=== PATIENT | female | born 1975 | race African-American/Black ===

== ENCOUNTER → 2016-12-22 | Outpatient (CLI) | payer OTHER ==
--- NOTE | 2016-12-22 17:00 | REPMRS ---
Patient History The patient states she has not had a clinical breast exam in over a year. Family history of prostate cancer in maternal uncle at age 65. Taking hormonal contraceptives for 15 years. Patient states she had a left breast bx in 2002 that was negative Patients prior exams over 10 years ago and destroyed. Digital Mammo Screening Bilat: December 22, 2016 - Exam #: [id number] Bilateral CC and MLO view(s) were taken. Technologist: Nell Suarez, Technologist FINDINGS: The breast tissue is heterogeneously dense. This may lower the sensitivity of mammography. There is no evidence of cancer on this mammogram. ASSESSMENT: BI-RADS/ACR category 2 mammogram. Benign finding(s). Recommendation Routine screening mammogram of both breasts in 1 year (for women over age 40). This mammogram was interpreted with the aid of an FDA-approved computer-aided dectection system. Electronically Signed By: Aamir Alas MD 12/22/16 [id number]
== END ==
LOC: M RAD 16:08
PROVIDERS: ATTEND Physician Assistant
DX: Z12.39 Encounter for other screening for malignant neoplasm of breast (principal)